=== PATIENT | male | born 2000 | race Asian ===

== ENCOUNTER 2020-02-06 08:09 | Emergency (ER) | payer OTHER ==
[~2020-02-06] VITALS: Ht 190.5 cm; Wt 97.5 kg
[2020-02-06 08:11] VITALS: Ht 190.5 cm; Wt 97.5 kg
[2020-02-06 08:38] VITALS: BP 157/98
== END 2020-02-06 08:38 | disposition other institution (70) ==
LOC: ED 08:09
DX: Z02.89 Encounter for other administrative examinations (principal)